=== PATIENT | female | born 1975 | race Caucasian/White ===

== ENCOUNTER 2016-05-26 21:12 | Emergency (ER) | payer SELFPAY ==
[~2016-05-26] VITALS: Ht 154.9 cm; Wt 55.5 kg
[~2016-05-26 21:12] MED LIST: METF500T4 PO; MUPI22OI2 TOP
[2016-05-26 21:17] VITALS: Ht 154.9 cm; Wt 55.5 kg
--- NOTE | 2016-05-26 22:04 | ERD ---
ER Documentation Chief Complaint Date/Time DATE: 05/26/16 TIME: 22:03 Chief Complaint 8 weeks , vag bleeding x 2 days HPI 40-year-old female presents here in emergency department for complaints of vaginal bleeding, spotting for 2 days. Patient is 6 para 5 0. LMP unknown. Patient states that she is approximately 8 weeks . Patient is complaining of pelvic pain and cramping pain 4/10 scale, accompanying the vaginal bleeding. Patient denies hematuria or dysuria. Patient denies any flank pain. Patient denies any vomiting. ROS All systems reviewed and are negative except as per history of present illness. Medications Home Meds Active Scripts Metformin* (Glucophage*) 500 Mg Tab, 500 MG PO BID, #60 TAB Prov:MISSY TIJERINA PA-C 01/13/16 Mupirocin* (Bactroban*) 2% -22 Gram Oint...g., 1 APPLIC TOP BID for 7 Days, EA Prov:MISSY TIJERINA PA-C 01/13/16 Allergies Allergies: Coded Allergies: No Known Allergy (Unverified , 05/26/16) PMhx/Soc Medical and Surgical Hx: pt denies Surgical Hx History of Surgery: No Anesthesia Reaction: No Hx Neurological Disorder: No Hx Respiratory Disorders: No Hx Cardiac Disorders: No Hx Psychiatric Problems: No Hx Miscellaneous Medical Probl: Yes (DM) Hx Alcohol Use: No Hx Substance Use: No Hx Tobacco Use: No Smoking Status: Never smoker FmHx Family History: No coronary disease, No diabetes, No other Physical Exam Vitals Vital Signs Date Time Temp Pulse Resp B/P Pulse Ox O2 Delivery O2 Flow Rate FiO2 05/26/16 21:17 97.8 88 20 131/71 100 Physical Exam GENERAL: The patient is well developed and appropriate for usual state of health, in no apparent distress. CHEST: Clear to auscultation bilaterally. There are no rales, wheezes or rhonchi. HEART: Regular rate and rhythm. No murmurs, clicks, rubs or gallops. No S3 or S4. ABDOMEN: Soft, nontender and nondistended. Good bowel sounds. No rebound or guarding. No gross peritonitis. No gross organomegaly or masses. No Sears sign or McBurney point tenderness. BACK: No midline or flank tenderness. EXTREMITIES: Equal pulses bilaterally. There is no peripheral clubbing, cyanosis or edema. No focal swelling or erythema. Full range of motion. Grossly neurovascularly intact. NEURO: Alert and oriented. Cranial nerves 2-12 intact. Motor strength in all 4 extremities with 5/5 strength. Sensation grossly intact. Normal speech and gait. SKIN: There is no apparent rash or petechia. The skin is warm and dry. HEMATOLOGIC AND LYMPHATIC: There is no evidence of excessive bruising or lymphedema. No gross cervical, axillary, or inguinal lymphadenopathy. : Noted small amount of blood in the vaginal vault cervical os is closed. No adnexal tenderness or cervical motion tenderness noted. Result Diagram: 05/26/16222905/26/162229 Results 24 hrs Laboratory Tests Test 05/26/16 22:25 05/26/16 22:30 Urine Color LT. YELLOW Urine Clarity SL HAZY Urine pH 6.5 Urine Specific Edison 1.020 Urine Ketones NEGATIVE Urine Nitrite NEGATIVE Urine Bilirubin NEGATIVE Urine Urobilinogen 0.2 E.U./dL Urine Leukocyte Esterase NEGATIVE Urine Microscopic RBC 5-10/HPF Urine Microscopic WBC 0-2/HPF Urine Squamous Epithelial Cells MODERATE Urine Bacteria FEW Urine Hemoglobin 3+ Urine Glucose >=1000% Urine Total Protein NEGATIVE White Blood Count 7.810^3/ul Red Blood Count 4.6410^6/ul Hemoglobin 14.4g/dl Hematocrit 41.9% Mean Corpuscular Volume 90.3fl Mean Corpuscular Hemoglobin 31.0pg Mean Corpuscular Hemoglobin Concent 34.4g/dl Red Cell Distribution Width 11.9% Platelet Count 05191^3/UL Mean Platelet Volume 11.7fl Neutrophils % 58.4% Lymphocytes % 33.0% Monocytes % 5.4% Eosinophils % 2.6% Basophils % 0.3% Nucleated Red Blood Cells % 0.0/100WBC Neutrophils # 4.610^3/ul Lymphocytes # 2.610^3/ul Monocytes # 0.410^3/ul Eosinophils # 0.210^3/ul Basophils # 0.010^3/ul Nucleated Red Blood Cells # 0.010^3/ul Sodium Level 135mmol/L Potassium Level 3.9mmol/L Chloride Level 98mmol/L Carbon Dioxide Level 26mmol/L Anion Gap 15 Blood Urea Nitrogen 12mg/dl Creatinine 0.40mg/dl Glucose Level 282mg/dl Calcium Level 9.0mg/dl Total Bilirubin 0.3mg/dl Direct Bilirubin 0.00mg/dl Indirect Bilirubin 0.3mg/dl Aspartate Amino Transf (AST/SGOT) 22IU/L Alanine Aminotransferase (ALT/SGPT) 30IU/L Alkaline Phosphatase 108IU/L Total Protein 7.7g/dl Albumin 4.3g/dl Globulin 3.40g/dl Albumin/Globulin Ratio 1.26 Beta HCG, Quantitative 2155.7mIU/ml PROCEDURE: Obstetrical ultrasound. CLINICAL INDICATION: Vaginal bleeding. TECHNIQUE: Multiple sonographic images of the pelvis were obtained with transabdominal and endovaginal technique. Images were obtained with damon scale and color Doppler. COMPARISON: No prior studies are available for comparison. FINDINGS: There is an intrauterine gestational sac with a pole identified. heart tones are not seen on color Doppler. There are heart tones seen on M- mode which could be a maternal. The crown-rump length averages 0.56 cm, compatible with 6 weeks and 2 days. The mean sac diameter averages 1.65 cm, compatible with 6 weeks and 3 days. A yolk sac is identified. No subchorionic collection is identified. There is no pelvic free fluid. The right ovary measures 2.8 x 1.9 x 1.9 cm and the left ovary measures 3.2 x 2.1 x 2.7 cm. There is normal flow to both ovaries. There is no suspicious adnexal mass identified. IMPRESSION: Single intrauterine with an estimated gestational age of 6 weeks and 3 days. No heart tones are identified on color Doppler. Heart tones are seen on M-mode which could be maternal. Follow-up ultrasound is recommended to evaluate for demise. .Keshawn Fitzpatrick MD, MD Date Time Electronically viewed and signed by .Keshawn Fitzpatrick MD, MD on 05/26/2016 23:57 .T/ CC: SABRINA RESTREPO [employer] Procedures/MDM Medical Decision Making: Patients vaginal bleeding is most likely consistent of possible threatened . Patient does not show any evidence of hypovolemic shock. Patients hemoglobin and hematocrit is stable. There is low suspicion for ectopic . DAVID results show a 6weeks , no heart tone noted. BetaHCG Quantitative is .The patient is Rh+, does not need RhoGAM this time. There is no signs of symptoms of dehydration. There is low suspicion for sepsis. Patient appears well and is hemodynamically stable. Disposition: Home. Condition: Stable Instructions: Patient is advised to do bed rest, avoid heavy lifting, and avoid having sex until cleared by OB doctor. Patient is advised to follow up with OB doctor or here at the ER in 48 hours for reevaluation of symptoms, repeat beta HCG quantitative and ultrasound. Patient is advised that is symptoms are worst, severe bleeding, dizziness, severe abdominal pain, fever, worst signs and symptoms to return to the emergency department immediately. Departure Diagnosis: Primary Impression: Vaginal bleeding in patient at less than 20 weeks gestation Additional Impression: Intrauterine Condition: Stable Patient Instructions: Bleeding During Early Additional Instructions: Patient is advised to do bed rest, avoid heavy lifting, and avoid having sex until cleared by OB doctor. Patient is advised to follow up with OB doctor or here at the ER in 48 hours for reevaluation of symptoms, repeat beta HCG quantitative and ultrasound. Patient is advised that is symptoms are worst, severe bleeding, dizziness, severe abdominal pain, fever, worst signs and symptoms to return to the emergency department immediately. SABRINA RESTERPO NP May 26, 2016 22:04
[2016-05-26 22:37] LABS: ADD SCAN DIFF NO
[2016-05-26 22:42] LABS: BASOPHILS % 0.3 % (0.0-2.0); EOSINOPHILS # 0.2 10^3/ul (0.0-0.5); EOSINOPHILS % 2.6 % (0.0-7.0); HEMATOCRIT 41.9 % (37.0-47.0); HEMOGLOBIN 14.4 g/dl (12.0-16.0); LYMPHOCYTES # 2.6 10^3/ul (0.8-2.9); MEAN CORPUSCULAR HGB CONC 34.4 g/dl (32.0-37.0); MEAN CORPUSCULAR VOLUME 90.3 fl (82.0-101.0); MEAN PLATELET VOLUME 11.7 fl (7.4-10.4); MONOCYTE # 0.4 10^3/ul (0.3-0.9); MONOCYTES % 5.4 % (0.0-11.0); NEUTROPHIL # 4.6 10^3/ul (1.6-7.5); NEUTROPHILS % 58.4 % (39.0-77.0); PLATELET COUNT 205 10^3/UL (140-415); RED BLOOD COUNT 4.64 10^6/ul (4.20-5.40); RED CELL DISTRIBUTION WIDTH 11.9 % (11.5-14.5); WHITE BLOOD COUNT 7.8 10^3/ul (4.8-10.8)
[2016-05-26 22:53] LABS: ALBUMIN 4.3 g/dl (3.3-4.9); POTASSIUM 3.9 mmol/L (3.5-5.1)
[2016-05-26 22:55] LABS: BILIRUBIN,INDIRECT 0.3 mg/dl (0-1.1); BILIRUBIN,TOTAL 0.3 mg/dl (0.2-1.3); CREATININE 0.4 mg/dl (0.44-1.00)
[2016-05-26 22:56] LABS: ALBUMIN/GLOBULIN RATIO 1.26; TOTAL PROTEIN 7.7 g/dl (6.1-8.1)
[2016-05-26 23:19] LABS: ADD UMIC YES; URINE BILIRUBIN (Dip) NEGATIVE (NEGATIVE); URINE BLOOD (Dip) 3+ (NEGATIVE); URINE COLOR LT. YELLOW (YELLOW); URINE GLUCOSE (Dip) >=1000 % (NEGATIVE); URINE KETONES (Dip) NEGATIVE (NEGATIVE); URINE LEUKOCYTE ESTERASE (Dip) NEGATIVE (NEGATIVE); URINE NITRITE (Dip) NEGATIVE (NEGATIVE); URINE TOTAL PROTEIN (Dip) NEGATIVE (NEGATIVE); URINE UROBILINOGEN (Dip) 0.2 E.U./dL (0.1-1.0)
[2016-05-26 23:31] LABS: BACTERIA,URINE FEW; SQUAMOUS EPITHELIAL CELL,UR MODERATE
--- NOTE | 2016-05-26 23:58 | RADRPT ---
PROCEDURE: Obstetrical ultrasound. CLINICAL INDICATION: Vaginal bleeding. TECHNIQUE: Multiple sonographic images of the pelvis were obtained with transabdominal and endova ginal technique. Images were obtained with damon scale and color Doppler. COMPARISON: No prior studies are available for comparison. FINDINGS: There is an intrauterine gestational sac with a pole identified. heart tones are not see n on color Doppler. There are heart tones seen on M-mode which could be a maternal. The crown -rump length averages 0.56 cm, compatible with 6 weeks and 2 days. The mean sac diameter averages 1. 65 cm, compatible with 6 weeks and 3 days. A yolk sac is identified. No subchorionic collection is i dentified. There is no pelvic free fluid. The right ovary measures 2.8 x 1.9 x 1.9 cm and the left ovary measur es 3.2 x 2.1 x 2.7 cm. There is normal flow to both ovaries. There is no suspicious adnexal mass jordy ntified. IMPRESSION: Single intrauterine with an estimated gestational age of 6 weeks and 3 days. No hea rt tones are identified on color Doppler. Heart tones are seen on M-mode which could be maternal. F ollow-up ultrasound is recommended to evaluate for demise. .Keshawn Fitzpatrick MD, Date Time Electronically viewed and signed by .Keshawn Fitzpatrick MD, MD on 05/26/2016 23:57 .T/
[2016-05-27 00:28] VITALS: BP 106/65; PULSE 84; RESP 16
== END 2016-05-27 00:29 | disposition home or self-care (01) ==
LOC: FTE 21:12
DX: O20.9 Hemorrhage in early pregnancy, unspecified (principal); O24.111 Pre-existing type 2 diabetes mellitus, in pregnancy, first trimester; E11.9 Type 2 diabetes mellitus without complications; Z3A.01 Less than 8 weeks gestation of pregnancy
CPT/HCPCS: 36415; 76801; 76817; 80053; 81001; 81003; 84702; 85025; 86900; 86901